=== PATIENT | male | born 1980 | race Caucasian/White ===

== ENCOUNTER 2023-06-27 17:18 | Emergency (ER) | payer OTHER, SELFPAY ==
[2023-06-27 17:22] VITALS: BP 148/100; PULSE 72; RESP 18; TEMP 36.2; O2SAT 95; BMI 29.0
--- NOTE | 2023-06-27 17:32 | CRLHL7_ITS ---
For Patients: As a result of the Cures Act, medical imaging exams and procedure reports are released immediately into your electronic medical record. You may view this report before your referring provider. If you have questions, please contact your health care provider. INDICATION: Postreduction. TECHNIQUE: Left shoulder 2 views. Permanently recorded images are archived. COMPARISON: None. FINDINGS/IMPRESSION : The left glenohumeral joint is congruent. No dislocation. No definite acute fracture visualized. Alignment is normal. Small calcification superior to the acromion, likely sequela of remote trauma or degenerative in nature. The joint spaces are preserved. The imaged thorax is unremarkable. Dictated by Eric Piña MD @ 06/27/2023 7:11:39 PM (Electronically Signed)
--- NOTE | 2023-06-27 17:33 | ED_ITS ---
HPI - General Adult General Date Seen: 06/27/23 Chief complaint: Shoulder Injury/Pain Stated complaint: dislocated shoulder Time Seen by Provider: 06/27/23 17:20 History of Present Illness HPI narrative: This is a very pleasant 42-year-old gentleman who presents to the ER today with his for acute shoulder pain and dislocation. He has a history of 2 previous shoulder dislocations. He was walking his dog today when the dog pulled on his lesion he felt his shoulder dislocate. Injury occurred just prior to arrival. She tried to put his shoulder back in the socket by wrapping his hand around his knee and leaning back, but was unsuccessful. His drove him immediately here to the ER. No other injuries. No numbness or tingling in his left arm. No pallor discoloration. No other injury from the incident. He did not fall, hit his head, or injure his neck. Related Data Home Medications Medication Instructions Recorded Confirmed No Known Home Medications 06/27/23 06/27/23 Allergies Allergy/AdvReac Type Severity Reaction Status Date / Time No Known Drug Allergies Allergy Verified 06/27/23 17:33 PFSH PFS Social History Smoking Status: Never smoker Do you use any of these nicotine containing products: None How often do you have a drink containing alcohol: never How often do you have six or more drinks on one occasion: Never AUDIT-C Alcohol total score: 0 Non-prescribed substance use: denies use Exam Narrative: Exam Narrative: Constitutional: Appears well-developed and well-nourished. Alert. Conversant. Non toxic. HENT: Head: Atraumatic. Nose: Nose normal. Mouth/Throat: Oral mucosa is clear and moist. no trismus. Eyes: Conjunctivae normal. EOM normal. Pupils equal, round, and reactive to light. No scleral icterus. Neck: Normal range of motion. Neck supple. No tracheal deviation present. Cardiovascular: Normal rate, regular rhythm. Symmetric radial artery pulses Pulmonary/Chest: Effort normal. No stridor. No respiratory distress. Musculoskeletal: RUE: Normal range of motion. No tenderness. No deformity LUE: Tenderness and deformity on the left shoulder with squaring off at the glenohumeral joint suspicious for an anterior glenohumeral joint dislocation. No other bony crepitus. No tenderness of the distal humeral shaft, elbow, forearm, wrist, hand. Intact axillary, median, radial, ulnar nerve sensory and motor function. Normal distal cap refill. Strong radial pulse. . No other tenderness. No other deformity RLE: Normal range of motion. No edema. No tenderness. No deformity LLE: Normal range of motion. No edema. No tenderness. No deformity Neurological: Alert and oriented to person, place, and time. Normal strength. CN II-VII intact. No sensory deficit. GCS eye subscore is 4. GCS verbal subscore is 5. GCS motor subscore is 6. Normal coordination Skin: Skin is warm and dry. No rash noted. No pallor. Normal capillary refill. Psychiatric: Normal mood. Normal affect. Const: Vital Signs, click to edit/add: Vital Signs - 24 hr 06/27/23 17:22 Temperature 97.2 F L Pulse Rate [Pulse Oximeter] 72 Respiratory Rate 18 Blood Pressure [Ri ght Upper Arm] 148/100 H Pulse Oximetry 95 Oxygen Delivery Me thod Room Air Course Vital Signs Vital signs: Initial Vital Signs Temperature 97.2 F L 06/27/23 17:22 Temperature Source Temporal Artery Scan 06/27/23 17:22 Pulse Rate 72 06/27/23 17:22 Respiratory Rate 18 06/27/23 17:22 Blood Pressure 148/100 H 06/27/23 17:22 Blood Pressure Mean 116 H 06/27/23 17:22 Blood Pressure Position Supine 06/27/23 17:22 Pulse Oximetry 95 06/27/23 17:22 Oxygen Delivery Method Room Air 06/27/23 17:22 Vital Signs Temperature 97.2 F L 06/27/23 17:22 Pulse Rate 72 06/27/23 17:22 Respiratory Rate 18 06/27/23 17:22 Blood Pressure 148/100 H 06/27/23 17:22 Pulse Oximetry 95 06/27/23 17:22 Oxygen Delivery Method Room Air 06/27/23 17:22 Temperature 97.2 F L 06/27/23 17:22 Pulse Rate 72 06/27/23 17:22 Respiratory Rate 18 06/27/23 17:22 Blood Pressure 148/100 H 06/27/23 17:22 Pulse Oximetry 95 06/27/23 17:22 Oxygen Delivery Method Room Air 06/27/23 17:22 Medications Administered Medications: Discontinued Medications Generic Name Dose Route Start Last Admin Trade Name Freq PRN Reason Stop Dose Admin Hydrocodone Bitart/Acetaminophen 1 tab 06/27/23 17:32 06/27/23 17:37 Hydrocodone-Acetamin 5-325 Mg 1 Tab PO 06/27/23 17:33 1 tab ONCE ONE Administration Ondansetron HCl 4 mg 06/27/23 17:32 06/27/23 17:37 Ondansetron Odt 4 Mg Tab PO 06/27/23 17:33 4 mg ONCE ONE Administration Medical Decision Making MDM Narrative Medical decision making narrative: This is a pleasant 42-year-old gentleman with a history of 2 previous left shoulder dislocations presenting to the ER today with his 3rd dislocation that occurred just prior to arrival today when his dog pulled forcefully on its leash any fell against some steps. Fortunately this is an isolated left shoulder injury. We were able to reduce the glenohumeral joint dislocation using scapular manipulation shortly after arrival. He was still having some pain after reduction so we administered Zofran and [place] with good improvement. Postreduction x-rays confirm anatomic alignment of the glenohumeral joint. I do not see any evidence for Hill Sachs fracture or Bankart lesion. He is neurovascularly intact after reduction in pain is improved/controlled. He is eager for discharge home. He will need outpatient orthopedic follow-up. His works for [employer]. She will be sure that he gets an appointment to see Orthopedics within the next 2-3 days. Discussed sling use, risk of frozen shoulder. They have adequate amounts of NSAIDs and muscle relaxers at home so will hold off on any prescription pain killers for now. Precautions for return to the ER reviewed. Reviewed sedation precautions. will drive home tonight. Imaging Data xr left shoulder: Attestation: I have reviewed the pertinent imaging results. My impression: Appropriate relocation. No Bankart lesion or Hill-Sachs lesion. Old fracture at the tip of the acromion. Per my read. Radiologist's impression: FINDINGS/IMPRESSION : The left glenohumeral joint is congruent. No dislocation. No definite acute fracture visualized. Alignment is normal. Small calcification superior to the acromion, likely sequela of remote trauma or degenerative in nature. The joint spaces are preserved. The imaged thorax is unremarkable. Discharge Plan Discharge Clinical Impression: Dislocated shoulder Patient Disposition: Home, Self-Care Condition: Stable Instructions: Shoulder Dislocation (ED) Additional Instructions: Please wear the sling while your up and around. Take the sling off when urine bed and when your in the shower. Perform gentle [id number] exercises with her shoulder at least once or twice per day. Be sure to follow-up with the orthopedic clinic within the next 2-3 days. Come back to the ER right away if you have more dislocation, worsening pain, numbness down your arm, or if you have any concerns. Prescriptions: No Action No Known Home Medications Follow Up/Referrals: Provider,Not a Local [Primary Care Provider] - Stand Alone Forms: [facility] Info Instructions Procedures Orthopedic Joint Reduction Left shoulder glenohumeral joint dislocation: Side: left Joint Reduction Location: shoulder Manipulation used?: Yes (Scapular manipulation and gentle distal tractio by nursing. No sedation) Shoulder Technique Used (if applicable): scapula manipulation Post-reduction neuro vascular exam: intact Post Reduction X-Ray Obtained: Yes Post Reduction X-Ray Results: reduced Additional Comments: Sling applied. Neuro intact after reduction.
[2023-06-27] MEDS: ONDANSETRON ODT 4 MG TAB PO (17:37)
[2023-06-27] MEDS: HYDROCODONE-ACETAMIN 5-325 MG 1 TAB PO (17:37)
== END 2023-06-27 19:06 | disposition home or self-care (01) ==
PROVIDERS: Emergency Provider Emergency Medicine
DX: M24.412 Recurrent dislocation, left shoulder (principal); X50.0XXA Overexertion from strenuous movement or load, initial encounter
CPT/HCPCS: 23650; 73030; 99283; 99284; A9270

== ENCOUNTER 2024-08-26 08:05 | Outpatient (CLI) | payer OTHER, SELFPAY | END 2024-08-26 08:06 | disposition home or self-care (01) | LOC: NFLDREF 18:35 | PROVIDERS: Visit Provider Family Medicine | DX: E78.00 Pure hypercholesterolemia, unspecified (principal); I10 Essential (primary) hypertension; R63.5 Abnormal weight gain; Z13.29 Encounter for screening for other suspected endocrine disorder | CPT/HCPCS: 80053; 80061; 84443 ==